=== PATIENT | male | born 1990 | race Caucasian/White ===

== ENCOUNTER 2018-08-19 13:45 | Emergency (ER) | payer SELFPAY ==
[~2018-08-19] VITALS: Ht 170.2 cm; Wt 64.0 kg
[2018-08-19] MEDS ORDERED: IBUPROFEN 600MG TABLET PO ONE (17:15)
[2018-08-19 17:55] VITALS: BP 127/88
== END 2018-08-19 17:56 | disposition left against medical advice (07) ==
LOC: ER 13:45
DX: S97.82XA Crushing injury of left foot, initial encounter (principal); M79.671 Pain in right foot; V09.00XA Pedestrian injured in nontraffic accident involving unspecified motor vehicles, initial encounter; Y93.89 Activity, other specified; Y92.410 Unspecified street and highway as the place of occurrence of the external cause
CPT/HCPCS: 99283

== ENCOUNTER 2020-05-28 17:56 | Emergency (ER) | payer SELFPAY ==
[~2020-05-28] VITALS: Ht 172.7 cm; Wt 64.0 kg
[2020-05-28 18:07] VITALS: BP 150/80
[2020-05-28] MEDS ORDERED: HYDROCODONE/ACETAMINOPHEN 5/325MG TABLET PO ONE (19:00)
== END 2020-05-28 21:25 | disposition home or self-care (01) ==
LOC: ER 17:56
DX: S82.001A Unspecified fracture of right patella, initial encounter for closed fracture (principal); V89.2XXA Person injured in unspecified motor-vehicle accident, traffic, initial encounter; Y93.89 Activity, other specified; Y92.89 Other specified places as the place of occurrence of the external cause; Y99.8 Other external cause status
CPT/HCPCS: 73560; 99283; L1830